=== PATIENT | male | born 1985 | race Caucasian/White ===

== ENCOUNTER 2016-03-26 14:12 | Emergency (ER) | payer BC, MEDICAID, OTHER ==
[~2016-03-26] VITALS: Ht 185.4 cm; Wt 101.0 kg
[~2016-03-26 14:12] MED LIST: OMEP20CA9 PO; PANT40TA3 PO; RANI150T9 PO
[2016-03-26 14:31] VITALS: Ht 185.4 cm; Wt 101.0 kg
[2016-03-26] MEDS ORDERED: morphine 4 MG/ML VIAL IV STA (15:38)
[2016-03-26] MEDS ORDERED: SOD CHLORIDE 0.9% 1,000 ML IV STA (15:38)
[2016-03-26] MEDS ORDERED: ONDANSETRON 4 MG INJ IV STA (15:38)
[2016-03-26] MEDS ORDERED: ONDANSETRON 4 MG INJ ONE (15:56)
[2016-03-26] MEDS ORDERED: morphine 4 MG/ML VIAL ONE (15:56)
[2016-03-26 16:41] LABS: BASOPHILS % 0.3 % (0.0-2.0); EOSINOPHILS # 0.1 10^3/ul (0.0-0.5); EOSINOPHILS % 1.3 % (0.0-7.0); HEMATOCRIT 42.9 % (42.0-52.0); HEMOGLOBIN 14.7 g/dl (14.0-18.0); LYMPHOCYTES # 1.6 10^3/ul (0.8-2.9); LYMPHOCYTES % 20.8 % (15.0-51.0); MEAN CORPUSCULAR HEMOGLOBIN 31.8 pg (29.0-33.0); MEAN CORPUSCULAR HGB CONC 34.2 g/dl (32.0-37.0); MEAN PLATELET VOLUME 8.5 fl (7.4-10.4); MONOCYTE # 0.9 10^3/ul (0.3-0.9); MONOCYTES % 11.8 % (0.0-11.0); NEUTROPHILS % 65.8 % (39.0-77.0); PLATELET COUNT 273 10^3/UL (140-440); RED BLOOD COUNT 4.61 10^6/ul (4.70-6.10); RED CELL DISTRIBUTION WIDTH 13.8 % (11.5-14.5); UNCORRECTED WBC 7.6 10^3/ul (4.8-10.8); WHITE BLOOD COUNT 7.6 10^3/ul (4.8-10.8)
[2016-03-26 16:42] LABS: CONDITION 1
[2016-03-26 16:45] LABS: URINE BILIRUBIN (Dip) NEGATIVE (NEGATIVE); URINE BLOOD (Dip) NEGATIVE (NEGATIVE); URINE COLOR LT. YELLOW (YELLOW); URINE GLUCOSE (Dip) NEGATIVE (NEGATIVE); URINE KETONES (Dip) NEGATIVE (NEGATIVE); URINE LEUKOCYTE ESTERASE (Dip) NEGATIVE (NEGATIVE); URINE NITRITE (Dip) NEGATIVE (NEGATIVE); URINE UROBILINOGEN (Dip) 0.2 E.U./dL (0.1-1.0)
[2016-03-26 16:50] LABS: ADD UMIC NO; ALBUMIN 3.8 g/dl (3.3-4.9); URINE TOTAL PROTEIN (Dip) NEGATIVE (NEGATIVE)
[2016-03-26 16:51] LABS: POTASSIUM 3.8 mmol/L (3.5-5.1)
[2016-03-26 16:53] LABS: ALBUMIN/GLOBULIN RATIO 1.08; BILIRUBIN,INDIRECT 0.3 mg/dl (0-1.1); BILIRUBIN,TOTAL 0.3 mg/dl (0.2-1.3); CREATININE 1.03 mg/dl (0.61-1.24); TOTAL PROTEIN 7.3 g/dl (6.1-8.1)
[2016-03-26 16:54] LABS: CALCIUM 8.7 mg/dl (8.4-10.2)
[2016-03-26] MEDS ORDERED: FAMOTIDINE 20 MG INJ IV ONE (17:30)
[2016-03-26] MEDS ORDERED: LIDOCAINE/MYLANTA 40 ML BTL PO ONE (17:30)
[2016-03-26 18:06] LABS: BARBITURATES NEGATIVE (NEGATIVE); BENZODIAZEPINES POSITIVE (NEGATIVE); CANNABINOIDS NEGATIVE (NEGATIVE); COCAINE POSITIVE (NEGATIVE); OPIATES NEGATIVE (NEGATIVE)
--- NOTE | 2016-03-26 18:12 | RADRPT ---
PROCEDURE: CT Abdomen and Pelvis without contrast. CLINICAL INDICATION: Abdominal pain TECHNIQUE: CT of the abdomen and pelvis was performed on a multi-detector scanner without IV contr ast. Coronal and sagittal images were reformatted from the axial data set. One or more of the foll owing dose reduction techniques were used: automated exposure control, adjustment of the mA and/or kV according to patient size, use of iterative reconstruction technique. CTDI = 18.35 mGy. DLP = 10 00 135.37 mGy-cm. COMPARISON: CT, 01/09/2012 FINDINGS: CT abdomen: The lung bases are clear. The heart size is normal, without pericardial effusion. Liver demonstrat es numerous small benign cysts, stable over time. Gallbladder, biliary tree, pancreas, spleen, adre nal glands and kidneys are unremarkable. No urolithiasis or obstructive uropathy is identified. Th e stomach is grossly unremarkable. The aorta is of normal caliber. There is no retroperitoneal lymphadenopathy. The jorge alberto hepatis reg ion is clear. CT pelvis: No bowel obstruction, free intraperitoneal air or abscess is identified. The appendix is well visua lized and normal. No diverticulosis, diverticulitis or colitis is identified. There is no pelvic m ass, free fluid or lymphadenopathy. Urinary bladder is grossly unremarkable. The surrounding osseous structures are unremarkable. No osteolytic or osteoblastic lesion is detect ed. IMPRESSION: 1. Unremarkable CT scan of the abdomen and pelvis. 2. No mass, lymphadenopathy, or focal acute inflammatory process is identified. RPTAT: QQ .Nick De Anda MD, Date Time Electronically viewed and signed by .Nick De Anda MD, on 03/26/2016 17:57 .R/
[2016-03-26] MEDS ORDERED: ACET500C5 PO (18:27)
[2016-03-26] MEDS ORDERED: FAMO-18 PO (18:27)
[2016-03-26] MEDS ORDERED: ONDA4TAB14 PO (18:27)
--- NOTE | 2016-03-26 18:31 | ERD ---
ER Documentation Chief Complaint Date/Time DATE: 03/26/16 TIME: 18:28 Chief Complaint NAUSEA x abdominal pain HPI 31-year-old male with a past mental history of gastritis presents the ED complaining of right and left lower quadrant abdominal pain that started 3 days ago. States that it worsened earlier today. States that he felt like he had a tactile fever but denies taking a temperature. Reports that he had a slightly streaked bright red blood stool. Denies any chest pain, shortness of breath, cough, rhinorrhea, hematuria, urgency, frequency, dysuria. Denies any drug use , smoking. States that he did drink alcohol yesterday. Denies any scrotal pain. ROS All systems reviewed and are negative except as per history of present illness. Medications Home Meds Active Scripts Ondansetron (Ondansetron Odt) 4 Mg Tab.rapdis, 4 MG PO Q6H Y for NAUSEA AND/OR VOMITING, #10 TAB Prov:ESTEBAN PALOMINO PA-C 03/26/16 Famotidine* (Pepcid*) 20 Mg Tablet, 20 MG PO BID for 4 Days, #30 TAB Prov:ESTEBAN PALOMINO PA-C 03/26/16 Acetaminophen* (Tylophen*) 500 Mg Capsule, 1 CAP PO Q6H Y for PAIN AND OR ELEVATED TEMP, #20 CAP Prov:ESTEBAN PALOMINO PA-C 03/26/16 Ranitidine Hcl* (Zantac*) 150 Mg Tablet, 150 MG PO BID Y for PAIN, #30 TAB Prov:JAYLA NAIR PA-C 01/24/15 Omeprazole* (Prilosec*) 20 Mg Capsule.dr, 20 MG PO DAILY, #60 CAP Prov:JAYLA NAIR PA-C 01/24/15 Pantoprazole* (Protonix*) 40 Mg Tablet.dr, 40 MG PO DAILY, #10 TAB Prov:ALBERTO MALHOTRA MD 11/18/14 Allergies Allergies: Coded Allergies: No Known Drug Allergies (Verified Allergy, Mild, 06/15/14) PMhx/Soc History of Surgery: Yes (HAND, cautery from upper GI bleed.) Anesthesia Reaction: No Hx Neurological Disorder: No Hx Respiratory Disorders: No Hx Cardiac Disorders: No Hx Psychiatric Problems: No (ANXIETY) Hx Miscellaneous Medical Probl: Yes ( gastritis, perforated ulcer. COLITIS) Hx Alcohol Use: Yes (ETOH ABUSE LAST DRINIK 3 DAYS AGO) Hx Substance Use: Yes (MARIJUANA, Cocaine) Hx Tobacco Use: Yes Smoking Status: Current some day smoker Physical Exam Vitals Vital Signs Date Time Temp Pulse Resp B/P Pulse Ox O2 Delivery O2 Flow Rate FiO2 03/26/16 14:31 98.7 86 18 134/86 97 Physical Exam Const: [id number], well-nourished. In no acute distress. Head: Atraumatic, normocephalic Eyes: Normal Conjunctiva without injection. No purulent discharge. ENT: Normal external ear, nose. Moist oropharynx without tonsillar exudates. Non -erythematous pharynx. Uvula midline. No drooling. No trismus. Neck: No cervical midline tenderness. Full range of motion. No meningismus. No cervical lymphadenopathy. No JVD. Resp: Clear to auscultation bilaterally. No wheezing, rhonchi, rales, or crackles. No accessory muscle use. No retractions. Cardio: Regular rate and rhythm. No murmurs, rubs or gallops. Abd: Soft, slightly tender to palpation, non distended. Normal bowel sounds. No palpable masses. No rebound tenderness. No guarding. Negative McBurney's point. Negative psoas sign. Negative obturator sign. Skin: No petechiae or rashes Back: No midline tenderness. No CVA tenderness. Ext: No cyanosis, or edema. Neur: Awake and alert. Normal gait. Normal coordination. Psych: Normal Mood and Affect Result Diagram: 03/26/16 1550 03/26/16 1550 Results 24 hrs Laboratory Tests Test 03/26/16 15:50 Alanine Aminotransferase (ALT/SGPT) 59IU/L Albumin 3.8g/dl Albumin/Globulin Ratio 1.08 Alkaline Phosphatase 84IU/L Anion Gap 16 Aspartate Amino Transf (AST/SGOT) 71IU/L Basophils # 0.010^3/ul Basophils % 0.3% Blood Urea Nitrogen 11mg/dl Calcium Level 8.7mg/dl Carbon Dioxide Level 27mmol/L Chloride Level 103mmol/L Creatinine 1.03mg/dl Direct Bilirubin 0.00mg/dl Eosinophils # 0.110^3/ul Eosinophils % 1.3% Globulin 3.50g/dl Glucose Level 98mg/dl Hematocrit 42.9% Hemoglobin 14.7g/dl Indirect Bilirubin 0.3mg/dl Lipase 223U/L Lymphocytes # 1.610^3/ul Lymphocytes % 20.8% Mean Corpuscular Hemoglobin 31.8pg Mean Corpuscular Hemoglobin Concent 34.2g/dl Mean Corpuscular Volume 93.0fl Mean Platelet Volume 8.5fl Monocytes # 0.910^3/ul Monocytes % 11.8% Neutrophils # 5.010^3/ul Neutrophils % 65.8% Nucleated Red Blood Cells # 0.010^3/ul Nucleated Red Blood Cells % 0.0/100WBC Platelet Count 26073^3/UL Potassium Level 3.8mmol/L Red Blood Count 4.6110^6/ul Red Cell Distribution Width 13.8% Sodium Level 142mmol/L Total Bilirubin 0.3mg/dl Total Protein 7.3g/dl Urine Amphetamines Screen NEGATIVE Urine Barbiturates NEGATIVE Urine Benzodiazepines Screen POSITIVE Urine Bilirubin NEGATIVE Urine Cannabinoids NEGATIVE Urine Clarity CLEAR Urine Cocaine Screen POSITIVE Urine Color LT. YELLOW Urine Glucose NEGATIVE% Urine Hemoglobin NEGATIVE Urine Ketones NEGATIVE Urine Leukocyte Esterase NEGATIVE Urine Nitrite NEGATIVE Urine Opiates Screen NEGATIVE Urine Specific [place] >=1.030 Urine Total Protein NEGATIVE Urine Urobilinogen 0.2 E.U./dL Urine pH 6.0 White Blood Count 7.610^3/ul Current Medications Medications (Trade) Dose Ordered Sig/Tara Route PRN Reason Start Time Stop Time Status Last Admin Dose Admin Sodium Chloride (NS) 1,000 ml @ 1,000 mls/hr Q1H STAT IV 03/26/16 15:38 03/26/16 16:37 DC 03/26/16 15:58 Morphine Sulfate (morphine) 4 mg ONCE STAT IV 03/26/16 15:38 03/26/16 15:40 DC 03/26/16 15:59 Ondansetron HCl (Zofran Inj) 4 mg ONCE STAT IV 03/26/16 15:38 03/26/16 15:40 DC 03/26/16 15:59 Miscellaneous Medication (Gi Cocktail (2)) 40 ml ONCE ONCE PO 03/26/16 17:30 03/26/16 17:31 DC 03/26/16 17:49 Famotidine (Pepcid Iv) 20 mg ONCE ONCE IV 03/26/16 17:30 03/26/16 17:31 DC 03/26/16 17:49 Procedures/MDM This is a 31-year-old male with no significant past medical history presents the ED complaining abdominal pain and nausea. Patient is afebrile nontoxic appearing. Patient has normal vital signs. Patient was further worked up with CBC, CMP, lipase, UA, CT of the abdomen and pelvis without contrast. Patient's pain and symptoms have improved after treatment with GI cocktail, 20 mg IV famotidine, 4 mg IV morphine, 4 mg IV Zofran. CBC: No leukocytosis. No e/o of systemic infection. No e/o anemia. CMP: No e/o severe acidosis, alkalosis, renal failure, diabetic ketoacidosis, liver disease Lipase within normal limits. Urine: No leukocyte esterase, no nitrites, no hematuria. Patient's abdominal pain could likely be due to gastritis. No acute abdomen on CT explaining patient's lower abdominal pain at this time. Low suspicion for appendicitis, diverticulitis, hernia, testicular torsion, or other emergent conditions. A differential diagnosis considered includes but is not limited to gastritis, GERD, peptic ulcer disease, cholecystitis, choledocholithiasis, cholangitis, pancreatitis, appendicitis, bowel obstruction, ileus, volvulus, nephrolithiasis, pyelonephritis, hepatitis, perforated viscus, diverticulitis, abdominal hernia, acute abdomen, mesenteric ischemia or other emergent conditions. Discharge medications: Tylenol, Zofran, famotidine Follow up with primary care physician in 1-2 days for referral to site leader. Instructed patient to return to the ED sooner for any worsening symptoms. Patient's questions were answered. Patient understood and agreed with discharge plan. Patient discharged stable. Departure Diagnosis: Primary Impression: Abdominal pain Abdominal location: lower abdomen, unspecified Qualified Code: R10.30 - Lower abdominal pain Condition: Stable Patient Instructions: Abdominal Pain, Gastritis Vs. Ulcer Referrals: COMMUNITY CLINICS YOU HAVE RECEIVED A MEDICAL SCREENING EXAM AND THE RESULTS INDICATE THAT YOU DO NOT HAVE A CONDITION THAT REQUIRES URGENT TREATMENT IN THE EMERGENCY DEPARTMENT. FURTHER EVALUATION AND TREATMENT OF YOUR CONDITION CAN WAIT UNTIL YOU ARE SEEN IN YOUR DOCTORS OFFICE WITHIN THE NEXT 1-2 DAYS. IT IS YOUR RESPONSIBILITY TO MAKE AN APPOINTMENT FOR FOLOW-UP CARE. IF YOU HAVE A PRIMARY DOCTOR --you should call your primary doctor and schedule an appointment IF YOU DO NOT HAVE A PRIMARY DOCTOR YOU CAN CALL OUR PHYSICIAN REFERRAL HOTLINE AT IF YOU CAN NOT AFFORD TO SEE A PHYSICIAN YOU CAN CHOSE FROM THE FOLLOWING [facility] CLINICS [facility] [address] [facility] [address] [facility] [address] [facility] [address] [facility] [address] [facility]. [facility] [address] [facility]. [facility] YOU HAVE RECEIVED A MEDICAL SCREENING EXAM AND THE RESULTS INDICATE THAT YOU DO NOT HAVE A CONDITION THAT REQUIRES URGENT TREATMENT IN THE EMERGENCY DEPARTMENT. FURTHER EVALUATION AND TREATMENT OF YOUR CONDITION CAN WAIT UNTIL YOU ARE SEEN IN YOUR DOCTORS OFFICE WITHIN THE NEXT 1-2 DAYS. IT IS YOUR RESPONSIBILITY TO MAKE AN APPOINTMENT FOR FOLOW-UP CARE. IF YOU HAVE A PRIMARY DOCTOR --you should call your primary doctor and schedule and appointment IF YOU DO NOT HAVE A PRIMARY DOCTOR YOU CAN CALL OUR PHYSICIAN REFERRAL HOTLINE AT . IF YOU CAN NOT AFFORD TO SEE A PHYSICIAN YOU CAN CHOSE FROM THE FOLLOWING [facility]: [facility] [address] [place] [address] [facility] [address] [place] [address] [facility] [address] [place] [address] [facility]RG[facility]SPECIALTIES Additional Instructions: FOLLOW UP WITH YOUR PRIMARY CARE PHYSICIAN TOMORROW.Return to this facility if you are not improving as expected. ESTEBAN PALOMINO PA-C Mar 26, 2016 18:31
[2016-03-26 18:42] VITALS: BP 131/83; PULSE 78; RESP 16; TEMP 98.2
== END 2016-03-26 18:43 | disposition home or self-care (01) ==
LOC: FTE 14:12
DX: R10.32 Left lower quadrant pain (principal); R11.0 Nausea; F17.210 Nicotine dependence, cigarettes, uncomplicated
CPT/HCPCS: 36415; 74176; 80053; 81003; 83690; 85025; 96374; 96375; G0479; J7030; Z7502; Z7610; J2270; J2405

== ENCOUNTER 2017-01-31 02:19 | Emergency (ER) | payer SELFPAY ==
[~2017-01-31] VITALS: Ht 177.8 cm; Wt 100.0 kg
[~2017-01-31 02:19] MED LIST changes: +ACET500C5 PO; +FAMO-96 PO; +ONDA4TAB14 PO
[2017-01-31 02:21] VITALS: Ht 177.8 cm; Wt 100.0 kg
[2017-01-31] MEDS ORDERED: morphine 4 MG/ML VIAL IV STA (02:27)
[2017-01-31] MEDS ORDERED: ONDANSETRON 4 MG INJ IV STA (02:27)
[2017-01-31] MEDS ORDERED: SOD CHLORIDE 0.9% 500 ML IV STA (02:27)
--- NOTE | 2017-01-31 03:02 | RADRPT ---
PROCEDURE: CT Abdomen and pelvis without contrast. CLINICAL INDICATION: Abdominal pain. TECHNIQUE: CT scan of the abdomen and pelvis was performed on a multi-detector high-resolution CT scanner. Contiguous axial images were obtained from the lung bases to the ischial tuberosities wit hout intravenous contrast. Coronal and sagittal reformatted images were also obtained. Images were reviewed on the PACS workstation. One or more of the following dose reduction techniques were used: - Automated exposure control. - Adjustment of the mA and/or kV according to patient size. - Use of iterative reconstruction technique. Exam CTD/vol = 20.26 mGy. Total exam DLP = 1252.56 mGy-cm. COMPARISON: 03/26/2016. FINDINGS: Evaluation of the lung bases demonstrates scattered air space opacities within the left lower lobe. Abdomen: The liver is normal in size. There are innumerable small hypodense lesions throughout the liver measuring up to 9 mm in size. There is no dilatation of the biliary tree. The gallbladder is not distended. The spleen, pancreas and bilateral adrenal glands are within normal limits. Bilate ral kidneys are normal in size with no contour deforming mass identified. There is no radiopaque re nal or ureteral calculus identified. There is no hydronephrosis or hydroureter. There is no retrop eritoneal adenopathy. The abdominal aorta is of normal caliber. There is no abnormal bowel wall thickening or distension. There is no bowel obstruction or free air . A normal appendix is identified. There is no diverticulosis or diverticulitis. There is no asci maximiliano. Pelvis: The bladder is unremarkable. The prostate and seminal vesicles are within normal limits. There is no significant pelvic adenopathy or free fluid. Evaluation of the osseous structures demonstrates no suspicious lytic or blastic lesion. IMPRESSION: Left lower lobe pneumonia. Innumerable small hepatic cyst, unchanged. .Iván Villatoro MD, Date Time Electronically viewed and signed by .Iván Villatoro MD, on 01/31/2017 03:02 .T/
[2017-01-31 03:19] VITALS: TEMP 98.3
[2017-01-31 04:30] VITALS: BP 116/93; PULSE 86; RESP 17
--- NOTE | 2017-01-31 05:29 | ERD ---
ER Documentation Chief Complaint Chief Complaint bib self, cc: abdominal pain and fever x 1 week HPI This is a very pleasant 31-year-old male comes in with complaints of abdominal pain for 1 week. Abdominal pain is in the bilateral upper quadrants nonradiating with no exacerbating or alleviating factors. One episode of vomiting which is nonbilious nonbloody. Complains of fever but no chills. No other current issues. ROS All systems reviewed and are negative except as per history of present illness. Medications Home Meds Active Scripts Ondansetron (Ondansetron Odt) 4 Mg Tab.rapdis, 4 MG PO Q6H Y for NAUSEA AND/OR VOMITING, #10 TAB Prov:ESTEBAN PALOMINO PA-C 03/26/16 Famotidine* (Pepcid*) 20 Mg Tablet, 20 MG PO BID for 4 Days, #30 TAB Prov:ESTEBAN PALOMINO PA-C 03/26/16 Acetaminophen* (Tylophen*) 500 Mg Capsule, 1 CAP PO Q6H Y for PAIN AND OR ELEVATED TEMP, #20 CAP Prov:ESTEBAN PALOMINO PA-C 03/26/16 Ranitidine Hcl* (Zantac*) 150 Mg Tablet, 150 MG PO BID Y for PAIN, #30 TAB Prov:JAYLA NAIR PA-C 01/24/15 Omeprazole* (Prilosec*) 20 Mg Capsule.dr, 20 MG PO DAILY, #60 CAP Prov:JAYLA NAIR PA-C 01/24/15 Pantoprazole* (Protonix*) 40 Mg Tablet.dr, 40 MG PO DAILY, #10 TAB Prov:ALBERTO MALHOTRA MD 11/18/14 Allergies Allergies: Coded Allergies: No Known Drug Allergies (Verified Allergy, Mild, 06/15/14) PMhx/Soc History of Surgery: No (LEFT HAND, COLONOSCOPY) Anesthesia Reaction: No Hx Neurological Disorder: No Hx Respiratory Disorders: No Hx Cardiac Disorders: No Hx Psychiatric Problems: No (ANXIETY) Hx Miscellaneous Medical Probl: Yes (COLITIS, STOMACH ULCERS) Hx Alcohol Use: Yes Hx Substance Use: No Hx Tobacco Use: Yes Smoking Status: Current every day smoker Physical Exam Vitals Vital Signs Date Time Temp Pulse Resp B/P Pulse Ox O2 Delivery O2 Flow Rate FiO2 01/31/17 03:19 98.3 88 22 151/93 99 Room Air 01/31/17 02:21 98.6 88 18 133/82 100 Physical Exam Const: [] Head: Atraumatic Eyes: Normal Conjunctiva ENT: Normal External Ears, Nose and Mouth. Neck: Full range of motion..~ No meningismus. Resp: Clear to auscultation bilaterally Cardio: Regular rate and rhythm, no murmurs Abd: Soft, non tender, non distended. Normal bowel sounds Skin: No petechiae or rashes Back: No midline or flank tenderness Ext: No cyanosis, or edema Neur: Awake and alert Psych: Normal Mood and Affect Result Diagram: 01/31/17 0300 01/31/17 0300 Results 24 hrs Laboratory Tests Test 01/31/17 03:00 01/31/17 04:45 White Blood Count 8.510^3/ul Red Blood Count 4.3410^6/ul Hemoglobin 13.8g/dl Hematocrit 40.0% Mean Corpuscular Volume 92.2fl Mean Corpuscular Hemoglobin 31.8pg Mean Corpuscular Hemoglobin Concent 34.5g/dl Red Cell Distribution Width 14.1% Platelet Count 43851^3/UL Mean Platelet Volume 10.0fl Neutrophils % 73.5% Lymphocytes % 12.4% Monocytes % 12.8% Eosinophils % 0.6% Basophils % 0.2% Nucleated Red Blood Cells % 0.0/100WBC Neutrophils # 6.310^3/ul Lymphocytes # 1.110^3/ul Monocytes # 1.110^3/ul Eosinophils # 0.110^3/ul Basophils # 0.010^3/ul Nucleated Red Blood Cells # 0.010^3/ul Sodium Level 142mmol/L Potassium Level 3.9mmol/L Chloride Level 106mmol/L Carbon Dioxide Level 22mmol/L Anion Gap 18 Blood Urea Nitrogen 15mg/dl Creatinine 1.31mg/dl Glucose Level 100mg/dl Calcium Level 9.0mg/dl Total Bilirubin 0.2mg/dl Direct Bilirubin 0.00mg/dl Indirect Bilirubin 0.2mg/dl Aspartate Amino Transf (AST/SGOT) 42IU/L Alanine Aminotransferase (ALT/SGPT) 59IU/L Alkaline Phosphatase 72IU/L Total Protein 8.0g/dl Albumin 4.1g/dl Globulin 3.90g/dl Albumin/Globulin Ratio 1.05 Lipase 128U/L Urine Color YELLOW Urine Clarity CLEAR Urine pH 5.0 Urine Specific [place] 1.021 Urine Ketones 1+mg/dL Urine Nitrite NEGATIVEmg/dL Urine Bilirubin NEGATIVEmg/dL Urine Urobilinogen 1+mg/dL Urine Leukocyte Esterase NEGATIVELeu/ul Urine Hemoglobin NEGATIVEmg/dL Urine Glucose NEGATIVEmg/dL Urine Total Protein NEGATIVEmg/dl Current Medications Medications (Trade) Dose Ordered Sig/Tara Route PRN Reason Start Time Stop Time Status Last Admin Dose Admin Sodium Chloride (NS) 500 ml @ 500 mls/hr Q1H STAT IV 01/31/17 02:27 01/31/17 03:26 DC 01/31/17 03:19 Morphine Sulfate (morphine) 4 mg ONCE STAT IV 01/31/17 02:27 01/31/17 02:28 DC 01/31/17 03:19 Ondansetron HCl (Zofran Inj) 4 mg ONCE STAT IV 01/31/17 02:27 01/31/17 02:28 DC 01/31/17 03:19 Procedures/MDM Medical decision-makin-year-old male has evidence of left CAT scan. Patient will be discharged home with azithromycin. Follow with PCP. Return for worsening symptoms. Departure Diagnosis: Primary Impression: Pneumonia Pneumonia type: due to unspecified organism Laterality: left Lung location : lower lobe of lung Qualified Code: J18.1 - Pneumonia of left lower lobe due to infectious organism Condition: Stable ED [place] Jan 31, 2017 05:29
[2017-01-31] MEDS ORDERED: ALBU18HF INHALATION (05:43)
[2017-01-31] MEDS ORDERED: AZIT250T94 PO (05:43)
[2017-01-31] MEDS ORDERED: PRED20TA PO (05:43)
== END 2017-01-31 06:12 | disposition home or self-care (01) ==
LOC: E/R 02:19
DX: J18.1 Lobar pneumonia, unspecified organism (principal); F17.210 Nicotine dependence, cigarettes, uncomplicated; R11.10 Vomiting, unspecified
CPT/HCPCS: 36415; 74176; 80053; 81003; 83690; 85025; 96374; 96375; 99285; J2270; J2405; J7040

== ENCOUNTER 2017-03-31 09:36 | Emergency (ER) | END 2017-03-31 15:00 | disposition home or self-care (01) ==

== ENCOUNTER 2017-04-02 14:52 | Emergency (ER) | END 2017-04-02 19:05 | disposition home or self-care (01) ==

== ENCOUNTER 2017-12-11 22:18 | Emergency (ER) | END 2017-12-12 02:30 | disposition home or self-care (01) ==

== ENCOUNTER 2018-02-08 10:26 | Emergency (ER) | END 2018-02-08 14:51 | disposition home or self-care (01) ==